=== PATIENT | female | born 1960 | race American Indian/Alaskan Native ===

== ENCOUNTER 2019-04-11 17:52 | Emergency (ER) | payer SELFPAY ==
--- NOTE | 2019-04-11 18:39 | Emergency Department Report ---
ED Fall HPI - General Chief Complaint: Fall Stated Complaint: FALL Time Seen by Provider: 04/11/19 18:19 Source: patient Mode of arrival: Ambulatory - History of Present Illness Initial Comments: Ms. Johnson is a 59-year-old -[place] female employee, denies hx, who presents status post fall in parking lot states she slipped and struck the left side of her cheek on the concrete floor. There is no LOC patient was immediately ambulatory after incident denies prodromal event. There is a small left cheek abrasion ,no laceration no bleeding, no deformity. Pt does complain of 4/10 frontal headache and mild posterior neck pain. pt is ambulatory to baseline per patient , there is no dizziness no lightheadedness, no n/v, no cp ,no sob. 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 denies: numbness, weakness, chest paint, shortness of breath, abdominal pain, hematuria, unable to walk, lightheaded, vertigo, confusion - Related Data Previous Rx's Medication Instructions Recorded Last Taken Type Acetaminophen/Codeine [Tylenol #3] 1 tab PO Q6H PRN #15 tab 10/06/14 Unknown Rx Ibuprofen [Motrin] 800 mg PO Q8H PRN #21 tablet 10/06/14 Unknown Rx Sulfamethoxazole/Trimethoprim 1 each PO BID #14 tablet 10/06/14 Unknown Rx [Bactrim Ds] Ibuprofen [Motrin 800 MG tab] 800 mg PO Q8HR #15 tablet 05/01/18 Unknown Rx Acetaminophen/Codeine [Tylenol 1 tab PO Q6H PRN #12 tab 04/11/19 Unknown Rx /Codeine # 3 tab] Clindamycin [Clindamycin CAP] 300 mg PO Q8H 10 Days #30 cap 04/11/19 Unknown Rx Menthol/Camphor [[place] 1 applicatio TP QID PRN #1 tube 04/11/19 Unknown Rx Ointment] Allergies Allergy/AdvReac Type Severity Reaction Status Date / Time amoxicillin Allergy Diarrhea Verified 05/01/18 23:17 ED Review of Systems ROS: Stated complaint: FALL Other details as noted in HPI Constitutional: denies: chills, fever Eyes: denies: eye pain, eye discharge, vision change ENT: denies: ear pain, throat pain Respiratory: denies: cough, shortness of breath, wheezing Cardiovascular: denies: chest pain, palpitations Endocrine: no symptoms reported Gastrointestinal: denies: abdominal pain, nausea, diarrhea Genitourinary: denies: urgency, dysuria, discharge Musculoskeletal: other (neck pain ). denies: back pain, joint swelling, arthralgia Skin: denies: rash, lesions Neurological: headache Psychiatric: denies: anxiety, depression Hematological/Lymphatic: as per HPI ED Past Medical Hx - Past Medical History Previous Medical History?: No - Surgical History Past Surgical History?: Yes Additional Surgical History: TUBAL LIGATION - Social History Smoking Status: Unknown if ever smoked Substance Use Type: None - Medications Home Medications: Home Medications Medication Instructions Recorded Confirmed Last Taken Type Acetaminophen/Codeine [Tylenol #3] 1 tab PO Q6H PRN #15 tab 10/06/14 Unknown Rx Ibuprofen [Motrin] 800 mg PO Q8H PRN #21 tablet 10/06/14 Unknown Rx Sulfamethoxazole/Trimethoprim 1 each PO BID #14 tablet 10/06/14 Unknown Rx [Bactrim Ds] Ibuprofen [Motrin 800 MG tab] 800 mg PO Q8HR #15 tablet 05/01/18 Unknown Rx Acetaminophen/Codeine [Tylenol 1 tab PO Q6H PRN #12 tab 04/11/19 Unknown Rx /Codeine # 3 tab] Clindamycin [Clindamycin CAP] 300 mg PO Q8H 10 Days #30 cap 04/11/19 Unknown Rx Menthol/Camphor [[place] 1 applicatio TP QID PRN #1 tube 04/11/19 Unknown Rx Ointment] ED Physical Exam - General Limitations: No Limitations General appearance: alert, in no apparent distress - Head Head exam: Present: normocephalic, normal inspection - Expanded Head Exam Expanded Head exam: Present: abrasion (left check no crepitus no stepoff mild swelling no bleeding no epistaxis ), contusion. Absent: hematoma, racoon eyes, bob's sign, general tenderness, tenderness of temporal artery, CSF rhinorrhea, CSF otorrhea - Eye Eye exam: Present: normal appearance, PERRL, EOMI Pupils: Present: normal accommodation - ENT ENT exam: Present: normal orophraynx, mucous membranes moist, TM's normal bilaterally, normal external ear exam - Neck Neck exam: Present: normal inspection, tenderness (left lateral neck muscle pain with palpation rom intact to all sood without restriction. ), full ROM. Absent: meningismus, lymphadenopathy, thyromegaly - Respiratory Respiratory exam: Present: normal lung sounds bilaterally. Absent: respiratory distress, wheezes, stridor, chest wall tenderness - Cardiovascular Cardiovascular Exam: Present: regular rate, normal rhythm, normal heart sounds. Absent: systolic murmur, diastolic murmur, rubs, gallop - GI/Abdominal GI/Abdominal exam: Present: soft, normal bowel sounds. Absent: distended, tenderness, bruit, hernia - Rectal Rectal exam: Present: deferred - Extremities Exam Extremities exam: Present: normal inspection, full ROM, normal capillary refill. Absent: tenderness - Back Exam Back exam: Present: normal inspection, full ROM. Absent: tenderness, vertebral tenderness - Neurological Exam Neurological exam: Present: alert, oriented X3, CN II-XII intact, normal gait, reflexes normal. Absent: motor sensory deficit - Psychiatric Psychiatric exam: Present: normal affect, normal mood - Skin Skin exam: Present: warm, dry, intact, normal color, abrasion (left cheek as above ). Absent: rash ED Course Vital Signs 04/11/19 17:55 Temperature 98.1 F Pulse Rate 70 Respiratory 16 Rate O2 Sat by Pulse 100 Oximetry ED Medical Decision Making - Radiology Data Radiology results: report reviewed, image reviewed ct head: no mass , bleed, or infarct, moderate frontal sinus drainage, CT Cspine: mild degenerative changes - Medical Decision Making ct: chronic frontal sinusitis, cspine ct: mild degenerative changes no acute bleed, mass, or infarct , no fracture plan: dc to home with rx for augmentin for sinusitis, pt will pickup otc: flonase, benadryl as needed for sinus congestion. will Rx Tylenol #3 for prn headache, pt will follow up with pcp in 2-3 days , return to ed if symptoms worsen, pt verbalized agreement and understanding of discharge plan. pt is currently a/o x 3 ambulatory with steady gait , headache is resolved at this time. Critical care attestation.: If time is entered above; I have spent that time in minutes in the direct care of this critically ill patient, excluding procedure time. ED Disposition Clinical Impression: Fall Qualifiers: Encounter type: initial encounter Qualified Code(s): W19.XXXA - Unspecified fall, initial encounter Facial abrasion Qualifiers: Encounter type: initial encounter Qualified Code(s): S00.81XA - Abrasion of other part of head, initial encounter Facial contusion Qualifiers: Encounter type: initial encounter Qualified Code(s): S00.83XA - Contusion of other part of head, initial encounter Neck muscle strain Qualifiers: Encounter type: initial encounter Qualified Code(s): S16.1XXA - Strain of muscle, fascia and tendon at neck level, initial encounter Headache Qualifiers: Headache type: unspecified Headache chronicity pattern: acute headache Intractability: not intractable Qualified Code(s): R51 - Headache Disposition: DC- TO HOME OR SELFCARE Is pt being admited?: No Does the pt Need Aspirin: No Condition: Stable Instructions: Fall Prevention (ED), Contusion in Adults (ED), Abrasion (ED), Cervical Spine Strain (ED), Acute Headache (ED) Prescriptions: Clindamycin [Clindamycin CAP] 300 mg PO Q8H 10 Days #30 cap Menthol/Camphor [[place] Ointment] 1 applicatio TP QID PRN #1 tube PRN Reason: pain Acetaminophen/Codeine [Tylenol /Codeine # 3 tab] 1 tab PO Q6H PRN #12 tab PRN Reason: pain Referrals: KIT ORO MD [Staff Physician] - 3-5 Days Forms: Work/School Release Form(ED) Time of Disposition: 19:44
--- NOTE | 2019-04-11 19:07 | Cat Scan Report ---
CT head/brain wo con INDICATION / CLINICAL INFORMATION: 59 years Female; fall headache. TECHNIQUE: Routine CT head without contrast. All CT scans at this location are performed using CT dos e reduction for ALARA by means of automated exposure control. COMPARISON: None. FINDINGS: BRAIN / INTRACRANIAL CONTENTS: No acute hemorrhage, mass effect, midline shift, hydrocephalus, or acu te, large territorial infarct. No chronic infarct or focal atrophy. No significant white matter abnor mality. CRANIOCERVICAL JUNCTION: No significant abnormality. ORBITS: No significant abnormality of visualized orbits. SINUSES / MASTOIDS: Desiccated secretions seen in the right frontal sinus. ADDITIONAL FINDINGS: None. IMPRESSION: 1. No focal mass, hemorrhage, hydrocephalus, or acute, large territorial infarct. Signer Name: Richmond Mendieta MD, III Signed: 04/11/2019 7:03 PM Workstation Name: [id number]
--- NOTE | 2019-04-11 19:14 | Cat Scan Report ---
CT cervical spine wo con INDICATION / CLINICAL INFORMATION: 59 years Female; fall headache neck pain. TECHNIQUE: Axial CT images of the cervical spine were obtained. Sagittal and coronal reformatted images were pr oduced. All CT scans at this location are performed using CT dose reduction for ALARA by means of aut omated exposure control. COMPARISON: None available. FINDINGS: POST-SURGICAL CHANGES: None. ALIGNMENT: Normal cervical lordosis seen without significant scoliosis. VERTEBRAE: No signs of fracture. Vertebral bodies are grossly normal in height throughout. There is mild osseous foraminal narrowing on the right at C4-5 from uncinate hypertrophy. Other areas of minimal uncinate hypertrophy seen as well, without significant sequela. INTRAVERTEBRAL DISCS: Minimal disc disease seen at various levels. No dominant herniation identified. No definitive signs of canal stenosis. PARASPINAL SOFT TISSUES: No significant abnormality. ADDITIONAL FINDINGS: Emphysematous changes seen along apices. IMPRESSION: 1. No signs of acute bony trauma to the cervical spine. Signer Name: Richmond Mendieta MD, III Signed: 04/11/2019 7:10 PM Workstation Name: [id number]
[2019-04-11] MEDS ORDERED: DILANTIN PO ONE (19:27)
[2019-04-11 19:58] VITALS: BP 129/71
== END 2019-04-11 19:50 | disposition home or self-care (01) ==
LOC: ED 17:52
DX: S00.83XA Contusion of other part of head, initial encounter (principal); S16.1XXA Strain of muscle, fascia and tendon at neck level, initial encounter; Z88.1 Allergy status to other antibiotic agents; Z79.899 Other long term (current) drug therapy; Z98.51 Tubal ligation status; W01.198A Fall on same level from slipping, tripping and stumbling with subsequent striking against other object, initial encounter; Y93.89 Activity, other specified; Y92.481 Parking lot as the place of occurrence of the external cause; Y99.8 Other external cause status
CPT/HCPCS: 70450; 72125; 99283

== ENCOUNTER 2020-08-04 00:20 | Emergency (ER) | payer BC ==
[2020-08-04] MEDS ORDERED: KETOROLAC 30 MG/1 ML INJ IM ONE (00:34)
--- NOTE | 2020-08-04 00:56 | Emergency Department Report ---
ED Back Pain/Injury HPI - General Chief Complaint: Back Pain/Injury Stated Complaint: LOWER BACK PAIN Time Seen by Provider: 08/04/20 00:33 Source: patient Limitations: No Limitations - History of Present Illness Initial Comments: Patient is a 60-year-old -[place] employee who presents for low back strain. Patient states pain for the past 3 days. Patient denies fall injury or trauma. Pain is described as 6/10 spasm aching sharp. Radiating to left lower extremity. Patient denies dysuria, frequency, urgency. There is been no fevers or chills. There has been no loss or decrease in bowel or bladder function. Patient ambulated self to ED tonight from floor. Patient denies weakness numbness or paralysis. Pain is exacerbated by bending twisting and reaching. Pain is relieved by nothing tried. MD Complaint: back pain - Related Data Previous Rx's Medication Instructions Recorded Last Taken Type Acetaminophen/Codeine [Tylenol #3] 1 tab PO Q6H PRN #15 tab 10/06/14 Unknown Rx Ibuprofen [Motrin] 800 mg PO Q8H PRN #21 tablet 10/06/14 Unknown Rx Sulfamethoxazole/Trimethoprim 1 each PO BID #14 tablet 10/06/14 Unknown Rx [Bactrim Ds] Ibuprofen [Motrin 800 MG tab] 800 mg PO Q8HR #15 tablet 05/01/18 Unknown Rx Acetaminophen/Codeine [Tylenol 1 tab PO Q6H PRN #12 tab 04/11/19 Unknown Rx /Codeine # 3 tab] Clindamycin [Clindamycin CAP] 300 mg PO Q8H 10 Days #30 cap 04/11/19 Unknown Rx Menthol/Camphor [[place] 1 applicatio TP QID PRN #1 tube 04/11/19 Unknown Rx Ointment] Acetaminophen [Acetaminophen TAB] 1,000 mg PO Q6HR PRN #28 tablet 08/04/20 Unknown Rx Acetaminophen [Acetaminophen TAB] 1,000 mg PO Q6HR PRN #30 tablet 08/04/20 Unknown Rx Allergies Allergy/AdvReac Type Severity Reaction Status Date / Time amoxicillin Allergy Diarrhea Verified 05/01/18 23:17 ED Review of Systems ROS: Stated complaint: LOWER BACK PAIN Other details as noted in HPI Constitutional: denies: chills, fever Eyes: denies: eye pain, eye discharge, vision change ENT: denies: ear pain, throat pain Respiratory: denies: cough, shortness of breath, wheezing Cardiovascular: denies: chest pain, palpitations Endocrine: no symptoms reported Gastrointestinal: denies: abdominal pain, nausea, diarrhea Genitourinary: denies: urgency, dysuria, discharge Musculoskeletal: back pain. denies: joint swelling, arthralgia Skin: rash Neurological: denies: headache, weakness, paresthesias Psychiatric: denies: anxiety, depression Hematological/Lymphatic: denies: easy bleeding, easy bruising ED Past Medical Hx - Past Medical History Previous Medical History?: No - Surgical History Past Surgical History?: Yes Additional Surgical History: TUBAL LIGATION - Social History Smoking Status: Former Smoker Substance Use Type: None - Medications Home Medications: Home Medications Medication Instructions Recorded Confirmed Last Taken Type Acetaminophen/Codeine [Tylenol #3] 1 tab PO Q6H PRN #15 tab 10/06/14 Unknown Rx Ibuprofen [Motrin] 800 mg PO Q8H PRN #21 tablet 10/06/14 Unknown Rx Sulfamethoxazole/Trimethoprim 1 each PO BID #14 tablet 10/06/14 Unknown Rx [Bactrim Ds] Ibuprofen [Motrin 800 MG tab] 800 mg PO Q8HR #15 tablet 05/01/18 Unknown Rx Acetaminophen/Codeine [Tylenol 1 tab PO Q6H PRN #12 tab 04/11/19 Unknown Rx /Codeine # 3 tab] Clindamycin [Clindamycin CAP] 300 mg PO Q8H 10 Days #30 cap 04/11/19 Unknown Rx Menthol/Camphor [[place] 1 applicatio TP QID PRN #1 tube 04/11/19 Unknown Rx Ointment] Acetaminophen [Acetaminophen TAB] 1,000 mg PO Q6HR PRN #28 tablet 08/04/20 Unknown Rx Acetaminophen [Acetaminophen TAB] 1,000 mg PO Q6HR PRN #30 tablet 08/04/20 Unknown Rx ED Physical Exam - General Limitations: No Limitations General appearance: alert, in no apparent distress - Head Head exam: Present: atraumatic, normocephalic - Eye Eye exam: Present: normal appearance, EOMI Pupils: Present: normal accommodation - ENT ENT exam: Present: mucous membranes moist - Neck Neck exam: Present: normal inspection, full ROM. Absent: tenderness - Respiratory Respiratory exam: Present: normal lung sounds bilaterally. Absent: respiratory distress, wheezes, stridor, chest wall tenderness - Cardiovascular Cardiovascular Exam: Present: regular rate, normal rhythm, normal heart sounds. Absent: systolic murmur, diastolic murmur, rubs, gallop - GI/Abdominal GI/Abdominal exam: Present: soft, normal bowel sounds. Absent: distended, tenderness, bruit, hernia - Rectal Rectal exam: Present: deferred - Extremities Exam Extremities exam: Present: normal inspection, full ROM. Absent: tenderness - Back Exam Back exam: Present: normal inspection, full ROM, tenderness, muscle spasm. Absent: CVA tenderness (R), CVA tenderness (L), paraspinal tenderness, vertebral tenderness - Neurological Exam Neurological exam: Present: alert, oriented X3, CN II-XII intact, normal gait, motor sensory deficit, reflexes normal - Expanded Neurological Exam Expanded Patient oriented to: Present: person, place, time Speech: Present: fluid speech Cerebellar function: Finger to Nose: Normal, Heel to Coleman: Normal, Romberg: Normal Upper motor neuron: Percy Neglect: Normal Sensory exam: Lower Extremity Light Touch: Normal, Lower Extremity Pin Prick: Normal, Lower Extremity Temperature: Normal, LE 2 Point Discrimination: Normal Motor strength exam: RUE: 5, LUE: 5, RLE: 5, LLE: 5 DTR: knee (R): 2+, knee (L): 2+ Best Eye Response ([place]): (4) open spontaneously Best Motor Response ([place]): (6) obeys commands Best Verbal Response ([place]): (5) oriented [place] Total: 15 - Psychiatric Psychiatric exam: Present: normal affect, normal mood - Skin Skin exam: Present: warm, dry, intact, normal color ED Course Vital Signs 08/04/20 08/04/20 00:26 00:30 Temperature 97.8 F Pulse Rate 85 Respiratory 16 Rate Blood Pressure 113/79 O2 Sat by Pulse 100 Oximetry ED Medical Decision Making - Radiology Data Radiology results: report reviewed - Medical Decision Making This is likely low back strain. Labs normal, plan, steroids, muscle relaxants analgesic balm. Follow-up with orthopedic surgery in 2 to 3 days. Patient verbalized agreement and understanding with discharge plan. Critical care attestation.: If time is entered above; I have spent that time in minutes in the direct care of this critically ill patient, excluding procedure time. ED Disposition Clinical Impression: Low back strain Qualifiers: Encounter type: initial encounter Qualified Code(s): S39.012A - Strain of muscle, fascia and tendon of lower back, initial encounter Disposition: TO HOME OR SELFCARE Is pt being admited?: No Does the pt Need Aspirin: No Condition: Undetermined Instructions: Lumbosacral Strain Prescriptions: Acetaminophen [Acetaminophen TAB] 1,000 mg PO Q6HR PRN #30 tablet PRN Reason: neck and shoulder pain Acetaminophen [Acetaminophen TAB] 1,000 mg PO Q6HR PRN #28 tablet PRN Reason: Pain , Severe (7-10) Referrals: PRIMARY CARE,MD [Primary Care Provider] - 3-5 Days Forms: Work/School Release Form(ED) Time of Disposition: 02:09
[2020-08-04 01:55] LABS: Bilirubin,Urine NEG (Negative); Blood,Urine MOD (Negative); Color,Urine Straw (Yellow); Protein,Urine <15 mg/dL mg/dL (Negative); Urobilinogen,Urine < 2.0 mg/dL (<2.0)
[2020-08-04 04:05] VITALS: BP 108/76
== END 2020-08-04 03:50 | disposition home or self-care (01) ==
LOC: ED 00:20
DX: S39.012A Strain of muscle, fascia and tendon of lower back, initial encounter (principal); Z88.0 Allergy status to penicillin; Z98.51 Tubal ligation status; Z87.891 Personal history of nicotine dependence; Z79.899 Other long term (current) drug therapy; X58.XXXA Exposure to other specified factors, initial encounter; Y93.89 Activity, other specified; Y92.89 Other specified places as the place of occurrence of the external cause; Y99.8 Other external cause status
CPT/HCPCS: 81001; 96372; 99282; J1885

== ENCOUNTER 2020-08-11 11:41 | Outpatient (CLI) | payer BC ==
--- NOTE | 2020-08-11 13:01 | XRay Report ---
CHEST 2 VIEWS INDICATION / CLINICAL INFORMATION: . COMPARISON: None available. FINDINGS: SUPPORT DEVICES: None. HEART / MEDIASTINUM: No significant abnormality. LUNGS / PLEURA: Patchy peripheral airspace disease in both lungs No pneumothorax. ADDITIONAL FINDINGS: No significant additional findings. IMPRESSION: Patchy peripheral airspace disease in both lungs consistent with atypical or viral pneumonia Signer Name: Yoel Mclean MD FACR Signed: 08/11/2020 12:56 PM Workstation Name: [id number]
== END 2020-08-11 11:42 | disposition home or self-care (01) ==
LOC: XRAY 11:41
PROVIDERS: ATTEND Internal Medicine
DX: R91.8 Other nonspecific abnormal finding of lung field (principal)
CPT/HCPCS: 71046

== ENCOUNTER 2020-11-11 09:18 | Outpatient (CLI) | payer BC ==
--- NOTE | 2020-11-11 12:17 | Vascular Lab Report ---
DUPLEX DOPPLER LOWER EXTREMITY VEINS, BILATERAL INDICATION / CLINICAL INFORMATION: CHRONIC VENOUS,HISTORY OF OTHER VENOUSTHROMBOSIS. TECHNIQUE: Duplex doppler imaging was performed through the veins of both lower extremities using venous sree michelle and other maneuvers. COMPARISON: None available. FINDINGS: RIGHT COMMON FEMORAL VEIN: Negative. RIGHT FEMORAL VEIN: Negative. RIGHT POPLITEAL VEIN: Chronic thrombus. No acute thrombus. RIGHT CALF VEINS: Chronic thrombus. No acute thrombus. LEFT COMMON FEMORAL VEIN: Negative. LEFT FEMORAL VEIN: Negative. LEFT POPLITEAL VEIN: Negative. LEFT CALF VEINS: Negative. ADDITIONAL FINDINGS: Venous reflux noted right lower extremity IMPRESSION: 1. Evidence of deep venous thrombosis recanalization 2. Venous reflux right lower extremity. Signer Name: Sabas Stearns MD Signed: 11/11/2020 12:13 PM Workstation Name: [id number]
== END 2020-11-11 09:19 | disposition home or self-care (01) ==
LOC: VAS 09:18
PROVIDERS: ATTEND Surgery Vascular Surgery
DX: I82.403 Acute embolism and thrombosis of unspecified deep veins of lower extremity, bilateral (principal); I87.323 Chronic venous hypertension (idiopathic) with inflammation of bilateral lower extremity; Z86.718 Personal history of other venous thrombosis and embolism
CPT/HCPCS: 93970

== ENCOUNTER 2021-01-12 13:25 | Outpatient (CLI) | payer BC ==
[2021-01-12 16:16] LABS: Basophils # (Auto) 0.1 K/mm3 (0.0-0.1); Basophils % (Auto) 1.1 % (0.0-1.8); Eosinophils # (Auto) 0.1 K/mm3 (0.0-0.4); Eosinophils % (Auto) 1.8 % (0.0-4.3); Hematocrit 41.5 % (30.3-42.9); Hemoglobin 14.3 gm/dl (10.1-14.3); Lymphocytes # (Auto) 3.1 K/mm3 (1.2-5.4); Mean Corpuscular HGB Conc 35 % (30-34); Mean Corpuscular Volume 89 fl (79-97); Monocytes # (Auto) 0.6 K/mm3 (0.0-0.8); Monocytes % (Auto) 9.5 % (0.0-7.3); Platelet Count 219 K/mm3 (140-440); Red Blood Count 4.69 M/mm3 (3.65-5.03); Red Cell Distribution Width 14.1 % (13.2-15.2)
[2021-01-12 16:38] LABS: Alanine Aminotransferase 11 units/L (7-56); Albumin 4.1 g/dL (3.9-5); BUN/Creatinine Ratio 15; Blood Urea Nitrogen 12 mg/dL (7-17); Calcium 9.7 mg/dL (8.4-10.2); Chol/HDL Ratio 3.32 %; HDL Cholesterol 52 mg/dL (40-59); Hemolysis Index 10; LDL Cholesterol,Direct 97 mg/dL (50-130)
[2021-01-16 13:08] LABS: Vitamin D, 25-OH, D2 11 ng/mL
== END 2021-01-12 13:26 | disposition home or self-care (01) ==
LOC: LAB 13:25
PROVIDERS: ATTEND Internal Medicine
DX: E66.01 Morbid (severe) obesity due to excess calories (principal)
CPT/HCPCS: 36415; 80053; 80061; 82306; 85025

== ENCOUNTER 2021-11-02 10:33 | Emergency (ER) | payer BC ==
--- NOTE | 2021-11-02 13:54 | Emergency Department Report ---
- General Chief complaint: Skin/Abscess/Foreign Body Stated complaint: BOIL BUTTOCK Time Seen by Provider: 11/02/21 13:02 Source: patient Mode of arrival: Ambulatory Limitations: No Limitations - History of Present Illness Initial comments: 61-year-old -[place] presents to the emergency room complaining of a boil to her left inner thigh. She states that the boils been there for about a month. She states that he had drained at one time and now has reappeared. Patient states that she has never had 1 down below. She does admit to having a boil on her right breast that was recently drained by a provider. She denies any fever chills. MD complaint: abscess/boil Onset/Timin -: month(s) Tetanus Up to Date: yes Location: genitals Severity scale (0 -10): 7 Quality: burning Consistency: intermittent Improves with: none Worsens with: palpation Associated symptoms: denies other symptoms Treatments Prior to Arrival: other (Warm compresses) - Related Data Previous Rx's Medication Instructions Recorded Last Taken Type Apixaban [Eliquis] 5 mg PO Q12HR #60 tablet 08/16/20 Unknown Rx Apixaban [Eliquis] 10 mg PO Q12HR #10 tablet 08/16/20 Unknown Rx HYDROcodone/APAP 7.5-325 [[place] 1 each PO Q4H PRN #10 tablet 08/16/20 Unknown Rx 7.5-325 mg TAB] Clindamycin [Clindamycin CAP] 300 mg PO Q8H 7 Days #21 cap 11/02/21 Unknown Rx Allergies Allergy/AdvReac Type Severity Reaction Status Date / Time amoxicillin Allergy Diarrhea Verified 08/13/20 11:45 Abscess Boil HPI - HPI Chief Complaint: Skin/Abscess/Foreign Body Stated Complaint: BOIL BUTTOCK Time Seen by Provider: 11/02/21 13:02 Home Medications: Previous Rx's Medication Instructions Recorded Last Taken Type Apixaban [Eliquis] 5 mg PO Q12HR #60 tablet 08/16/20 Unknown Rx Apixaban [Eliquis] 10 mg PO Q12HR #10 tablet 08/16/20 Unknown Rx HYDROcodone/APAP 7.5-325 [[place] 1 each PO Q4H PRN #10 tablet 08/16/20 Unknown Rx 7.5-325 mg TAB] Clindamycin [Clindamycin CAP] 300 mg PO Q8H 7 Days #21 cap 11/02/21 Unknown Rx Allergies/Adverse Reactions: Allergies Allergy/AdvReac Type Severity Reaction Status Date / Time amoxicillin Allergy Diarrhea Verified 08/13/20 11:45 ED Review of Systems ROS: Stated complaint: BOIL BUTTOCK Other details as noted in HPI Comment: All other systems reviewed and negative ED Past Medical Hx - Past Medical History Hx Arthritis: No Additional medical history: denies past medical history - Surgical History Additional Surgical History: TUBAL LIGATION - Social History Smoking Status: Former Smoker Substance Use Type: None - Medications Home Medications: Home Medications Medication Instructions Recorded Confirmed Last Taken Type Apixaban [Eliquis] 5 mg PO Q12HR #60 tablet 08/16/20 Unknown Rx Apixaban [Eliquis] 10 mg PO Q12HR #10 tablet 08/16/20 Unknown Rx HYDROcodone/APAP 7.5-325 [[place] 1 each PO Q4H PRN #10 tablet 08/16/20 Unknown Rx 7.5-325 mg TAB] Clindamycin [Clindamycin CAP] 300 mg PO Q8H 7 Days #21 cap 11/02/21 Unknown Rx ED Physical Exam - General Limitations: No Limitations General appearance: alert, in no apparent distress - Head Head exam: Present: atraumatic, normocephalic - Eye Eye exam: Present: normal appearance - ENT ENT exam: Present: mucous membranes moist - Neck Neck exam: Present: full ROM - Respiratory Respiratory exam: Absent: respiratory distress - Cardiovascular Cardiovascular Exam: Present: regular rate - External exam: Present: lesions (Left groin 3 cm x 1 cm) - Extremities Exam Extremities exam: Present: normal inspection, full ROM - Back Exam Back exam: Present: normal inspection, full ROM - Neurological Exam Neurological exam: Present: alert, oriented X3, normal gait - Psychiatric Psychiatric exam: Present: normal affect, normal mood ED Course Vital Signs 11/02/21 10:53 Temperature 96.9 F L Pulse Rate 56 L Respiratory 18 Rate Blood Pressure 144/48 [Right] O2 Sat by Pulse 98 Oximetry ED Medical Decision Making - Medical Decision Making 61-year-old -[place] presents to the emergency room complaining of a boil to her left inner thigh. She states that the boils been there for about a month. She states that he had drained at one time and now has reappeared. Patient states that she has never had 1 down below. She does admit to having a boil on her right breast that was recently drained by a provider. She denies any fever chills. Incision and drain tempted with no discharge or drainage. Patient be placed on clindamycin referral to dermatology. Critical care attestation.: If time is entered above; I have spent that time in minutes in the direct care of this critically ill patient, excluding procedure time. ED Disposition Clinical Impression: Hidradenitis suppurativa Is pt being admited?: No Does the pt Need Aspirin: No Condition: Stable Instructions: Hidradenitis Suppurativa Additional Instructions: Complete antibiotics as prescribed. Ibuprofen or Tylenol for pain as needed. Keep area clean and dry. Follow-up with a [facility] caretaker. Hidradenitis suppurativa Also called: acne inversa [facility] A chronic skin condition featuring lumps in places such as the armpits or groin. The skin lesions develop as a result of inflammation and infection of sweat glands. This condition features pea- to marble-sized lumps under the skin that can be painful and tend to enlarge and drain pus. They usually occur where skin rubs together, such as in the armpits, groin, and buttocks. Medications, corticosteroid injections, and sometimes surgery can help manage symptoms. Prescriptions: Clindamycin [Clindamycin CAP] 300 mg PO Q8H 7 Days #21 cap Referrals: PRIMARY CAREMD [Primary Care Provider] - 3-5 Days SHON ADAME MD [Staff Physician] - 3-5 Days [facility] [Provider Group] - 3-5 Days Forms: Work/School Release Form(ED) Time of Disposition: 13:59
[2021-11-02 14:30] VITALS: BP 125/79
== END 2021-11-02 14:31 | disposition home or self-care (01) ==
LOC: ED 10:33
DX: L73.2 Hidradenitis suppurativa (principal); Z88.0 Allergy status to penicillin
CPT/HCPCS: 99282